=== PATIENT | female | born 1950 ===

== ENCOUNTER 2024-03-28 20:45 | Outpatient (REF) | payer MEDICARE, SELFPAY ==
[2024-03-28 21:43] LABS: Basophils Percent Auto 0.5 % (0.2-2.0); Eosinophils Absolute Auto 0.1 10^3/uL (0.0-0.7); Eosinophils Percent Auto 1.2 % (0.9-7.0); Hematocrit 34.3 % (36.0-48.0); Hemoglobin 10.9 g/dL (12.0-16.0); Immature Granulocytes Abs Auto 0.03 10^3/uL (0.00-0.03); Immature Granulocytes Pct Auto 0.7 % (0.0-0.5); Lymphocytes Absolute Auto 0.4 10^3/uL (1.2-3.8); Lymphocytes Percent Auto 9.9 % (20.5-60.0); Mean Corpuscular HGB Conc 31.8 g/dL (29.9-35.2); Mean Corpuscular Hemoglobin 27.3 pg (26.7-34.0); Monocytes Absolute Auto 0.6 10^3/uL (0.3-0.8); Monocytes Percent Auto 14.2 % (1.7-12.0); Neutrophils Absolute Auto 3.1 10^3/uL (1.4-6.5); Neutrophils Percent Auto 73.5 % (43.0-75.0); Platelet Count 339 10^3/uL (150-450); Red Blood Count 3.99 10^6/uL (4.20-5.40); Red Cell Distribution Width 17.6 % (11.0-15.0); White Blood Count 4.2 10^3/uL (4.0-11.0)
[2024-03-28 21:58] LABS: Alanine Aminotransferase 22 U/L (14-59); Albumin Globulin Ratio 0.7; Albumin Level 2.5 g/dL (3.4-5.0); Alkaline Phosphatase 86 U/L (46-116); Anion Gap 10.9; Aspartate Amino Transferase 23 U/L (15-37); BUN Creatinine Ratio 23.1; Bilirubin Total 0.5 mg/dL (0.2-1.0); Calcium 8.6 mg/dL (8.5-10.1); Carbon Dioxide 26.8 mmol/L (21.0-32.0); Chloride 98 mmol/L (98-107); Estimated GFR (African America >60 (>=60); Estimated GFR (Non-African Ame >60 (>=60); Globulin 3.8 g/dL; Glucose 94 mg/dL (74-106); Phosphorus 3.7 mg/dL (2.6-4.7); Potassium 3.7 mmol/L (3.5-5.1); Prealbumin 14.9 mg/dL (20.9-45.5); Sodium 132 mmol/L (136-145); Total Protein 6.3 g/dL (6.4-8.2); Triglycerides 76 mg/dL (<=150)
[2024-03-30 07:10] LABS: Calcium, Ionized, Serum 4.6 mg/dL (4.5-5.6)
== END 2024-03-28 20:46 | disposition home or self-care (01) ==
LOC: LAB 20:45
DX: E43 Unspecified severe protein-calorie malnutrition (principal)
CPT/HCPCS: 36415; 80053; 82330; 83735; 84100; 84134; 84478; 85025